=== PATIENT | female | born 1960 | race Caucasian/White ===

== ENCOUNTER 2017-07-22 09:44 | Emergency (ER) | payer OTHER ==
[2017-07-22 09:51] VITALS: BP 110/73
--- NOTE | 2017-07-22 10:01 | UC ---
Throat Pain/Nasal Frankie HPI - HPI Summary HPI Summary: nasal congestion / sore throat x 2 days + cough , chest congestion no fever, no chills - History of Current Complaint Chief Complaint: UCRespiratory Stated Complaint: STOMACH HEAD SORE THROAT Time Seen by Provider: 07/22/17 09:53 Hx Obtained From: Patient Hx Last Menstrual Period: n/a ?: No Onset/Duration: Gradual Onset, Lasting Days - 2, Still Present Severity: Moderate Cough: Nonproductive Associated Signs & Symptoms: Positive: Nasal Discharge. Negative: Dysphagia, FB Sensation, Drooling, Wheezing, Hoarseness, Sinus Discomfort, Fever, Vomiting , Rash - Allergies/Home Medications Allergies/Adverse Reactions: Allergies Allergy/AdvReac Type Severity Reaction Status Date / Time Penicillins Allergy Intermediate Hives Verified 07/22/17 09:51 Raspberry Allergy Intermediate Hives Verified 07/22/17 09:51 Home Medications: Home Medications NK [No Home Medications Reported] 07/22/17 [History Confirmed 07/22/17] PMH/Surg Hx/FS Hx/Imm Hx Previously Healthy: Yes - Surgical History Surgical History: Yes Surgery Procedure, Year, and Place: C-SECTIONS, TWICE - Family History Known Family History: Positive: Hypertension - Social History Alcohol Use: None Substance Use Type: None Smoking Status (MU): Former Smoker Have You Smoked in the Last Year: No When Did the Patient Quit Smoking/Using Tobacco: 15 YRS AGO - Immunization History Most Recent Influenza Vaccination: not 2017 Review of Systems Constitutional: Negative Skin: Negative Eyes: Negative ENT: Sore Throat, Ear Ache, Nasal Discharge Respiratory: Cough Cardiovascular: Negative Gastrointestinal: Negative Genitourinary: Negative Is Patient Immunocompromised?: No All Other Systems Reviewed And Are Negative: Yes Physical Exam Triage Information Reviewed: Yes Appearance: Well-Appearing, No Pain Distress, Well-Nourished Vital Signs: Initial Vital Signs Temp 98.8 F 07/22/17 09:47 Pulse 63 07/22/17 09:47 Resp 18 07/22/17 09:47 BP 110/73 07/22/17 09:47 Pulse Ox 98 07/22/17 09:47 Vital Signs Reviewed: Yes Eyes: Positive: Conjunctiva Clear ENT: Positive: Normal ENT inspection, Hearing grossly normal, Pharyngeal erythema, Nasal congestion, TMs normal Neck exam: Normal Neck: Positive: Supple, Nontender, No Lymphadenopathy Respiratory: Positive: Chest non-tender, Lungs clear, Normal breath sounds Cardiovascular: Positive: RRR, No Murmur, Pulses Normal Throat Pain/Nasal Course/Dx - Differential Dx/Diagnosis Provider Diagnoses: URI Discharge - Discharge Plan Condition: Stable Disposition: HOME Patient Education Materials: Upper Respiratory Infection (ED) Forms: *Work Release Referrals: ROBYN Katz [Primary Care Provider] - If Needed
== END 2017-07-22 10:06 | disposition home or self-care (01) ==
LOC: UCCORT 09:44
DX: J06.9 Acute upper respiratory infection, unspecified (principal); Z88.0 Allergy status to penicillin
CPT/HCPCS: 87651; 99211; G0463

== ENCOUNTER 2018-11-29 10:57 | Emergency (ER) | payer OTHER ==
[2018-11-29 11:44] VITALS: BP 119/92
[2018-11-29 12:20] LABS: Influenza A Molecular POSITIVE (Negative)
--- NOTE | 2018-11-29 13:21 | UC ---
FLU HPI - HPI Summary HPI Summary: 58-year-old woman here with a chief complaint of 2 days of fevers chills and body aches. Her grandson was diagnosed the flu 2 days ago. Patient state some acetaminophen with minimal relief. No vomiting no chest congestion. Feels tired has been sleeping a lot. - History of Current Complaint Chief Complaint: UCRespiratory Stated Complaint: BODYACHES Time Seen by Provider: 11/29/18 13:12 Hx Last Menstrual Period: 2yrs Pain Intensity: 4 - Allergy/Home Medications Allergies/Adverse Reactions: Allergies Allergy/AdvReac Type Severity Reaction Status Date / Time Penicillins Allergy Intermediate Hives Verified 11/29/18 11:32 raspberry Allergy Hives Verified 11/29/18 11:32 Home Medications: Home Medications Acetaminophen [Tylenol Extra Strength] 1,000 mg PO ONCE PRN 11/29/18 [History Confirmed 11/29/18] PMH/Surg Hx/FS Hx/Imm Hx Previously Healthy: Yes - Surgical History Surgical History: Yes Surgery Procedure, Year, and Place: C-SECTIONS, TWICE - Family History Known Family History: Positive: Hypertension - Social History Alcohol Use: None Substance Use Type: None Smoking Status (MU): Never Smoked Tobacco Have You Smoked in the Last Year: No When Did the Patient Quit Smoking/Using Tobacco: 15 YRS AGO - Immunization History Most Recent Influenza Vaccination: not 2017 Review of Systems All Other Systems Reviewed And Are Negative: Yes Constitutional: Positive: Fever, Chills Skin: Positive: Negative Eyes: Positive: Negative ENT: Positive: Sore Throat, Nasal Discharge, Sinus Congestion Respiratory: Positive: Negative Cardiovascular: Positive: Negative Gastrointestinal: Positive: Negative Motor: Positive: Negative Neurovascular: Positive: Negative Musculoskeletal: Positive: Myalgia Neurological: Positive: Headache Psychological: Positive: Negative Is Patient Immunocompromised?: No Physical Exam Triage Information Reviewed: Yes Appearance: No Pain Distress, Well-Nourished, Ill-Appearing - MILD Vital Signs: Initial Vital Signs Temp 97.9 F 11/29/18 11:38 Pulse 101 11/29/18 11:38 Resp 20 11/29/18 11:38 BP 119/92 11/29/18 11:38 Pulse Ox 95 11/29/18 11:38 Vital Signs Reviewed: Yes Eye Exam: Normal Eyes: Positive: Conjunctiva Clear ENT: Positive: Pharyngeal erythema, Nasal congestion, Nasal drainage, TMs normal Neck exam: Normal Neck: Positive: Supple Respiratory: Positive: Lungs clear, Normal breath sounds, No respiratory distress Cardiovascular: Positive: RRR Musculoskeletal Exam: Normal Musculoskeletal: Positive: Strength Intact, ROM Intact Neurological Exam: Normal Neurological: Positive: Alert, Muscle Tone Normal Psychological Exam: Normal Psychological: Positive: Age Appropriate Behavior Skin Exam: Normal Flu Course/Dx - Differential Dx/Diagnosis Provider Diagnosis: Influenza Discharge - Sign-Out/Discharge Documenting (check all that apply): Patient Departure All imaging exams completed and their final reports reviewed: No Studies - Discharge Plan Condition: Stable Disposition: HOME Prescriptions: Oseltamivir CAP* [Tamiflu CAP*] 75 mg PO BID #10 cap Patient Education Materials: Influenza (ED) Forms: *Work Release Referrals: [facility] [place] [facility] REFERRAL [Outside] Additional Instructions: FOLLOW UP WITH YOUR DOCTOR IF NOT COMPLETELY IMPROVED. GET RECHECKED FOR ANY WORSENING OF YOUR CONDITION OR QUESTIONS OR CONCERNS. - Billing Disposition and Condition Condition: STABLE Disposition: Home
== END 2018-11-29 13:27 | disposition home or self-care (01) ==
LOC: UCCORT 10:57
DX: J11.1 Influenza due to unidentified influenza virus with other respiratory manifestations (principal); Z88.0 Allergy status to penicillin; Z91.018 Allergy to other foods
CPT/HCPCS: 99212; G0463

== ENCOUNTER 2019-02-07 16:28 | Emergency (ER) | payer OTHER ==
[2019-02-07 16:47] VITALS: BP 128/64
[2019-02-07] MEDS ORDERED: Ibuprofen ADULT LIQ* 600 MG/30 ML UDC PO ONE (16:48)
--- NOTE | 2019-02-07 16:58 | UC ---
General HPI - HPI Summary HPI Summary: BEGAN 2 DAYS AGO WITH A SORE THROAT, MOSTLY R SIDED. A SHORT TIME LATER PT DEVELOPED R SIDED NECK PAIN AND STIFFNESS. THROAT AND NECK ARE WORSE WITH ANY MOVEMENT, COUGH OR SWALLOW. SHE IS ABLE TO SWALLOW LIQUIDS AND SALIVA. SHE DENIES COUGH, SOB AND DIFFICULTY WITH SPEECH. - History of Current Complaint Chief Complaint: UCRespiratory Stated Complaint: THROAT/NECK PAIN Time Seen by Provider: 02/07/19 16:42 Hx Obtained From: Patient Hx Last Menstrual Period: 2yrs Timing: Constant Pain Intensity: 6 Associated Signs & Symptoms: Positive: Fever. Negative: Cough, Chest Pain, Headache, SOB - Allergy/Home Medications Allergies/Adverse Reactions: Allergies Allergy/AdvReac Type Severity Reaction Status Date / Time Penicillins Allergy Intermediate Hives Verified 02/07/19 16:38 raspberry Allergy Hives Verified 02/07/19 16:38 Home Medications: Home Medications NK [No Home Medications Reported] 02/07/19 [History Confirmed 02/07/19] PMH/Surg Hx/FS Hx/Imm Hx Previously Healthy: Yes - Surgical History Surgical History: Yes Surgery Procedure, Year, and Place: C-SECTIONS, TWICE - Family History Known Family History: Positive: Hypertension, Non-Contributory - Social History Alcohol Use: None Substance Use Type: None Smoking Status (MU): Never Smoked Tobacco Have You Smoked in the Last Year: No When Did the Patient Quit Smoking/Using Tobacco: 15 YRS AGO - Immunization History Most Recent Influenza Vaccination: not 2017 Review of Systems All Other Systems Reviewed And Are Negative: Yes Constitutional: Positive: Fever ENT: Positive: Sore Throat Musculoskeletal: Positive: Other: - R neck pain Physical Exam Triage Information Reviewed: Yes Appearance: Pain Distress - hold R side of neck Vital Signs: Initial Vital Signs Temp 100.5 F 02/07/19 16:39 Pulse 88 02/07/19 16:39 Resp 20 02/07/19 16:39 BP 128/64 02/07/19 16:39 Pulse Ox 98 02/07/19 16:39 Vital Signs Reviewed: Yes Eyes: Positive: Conjunctiva Clear ENT: Positive: Pharyngeal erythema - and R side of pharynx is swollen, Uvula midline - with mild swelling and erythema.. Negative: Nasal congestion, Nasal drainage, TMs normal, Trismus, Muffled voice, Hoarse voice Neck: Positive: Other: - R sided peritonsilar node tenderness. R sternocleidomastoid mm spasm. Pt refusing to turn head due to the pain along the R side of her neck. No stridor. Respiratory: Positive: Lungs clear, Normal breath sounds, No respiratory distress Cardiovascular: Positive: RRR, No Murmur Abdomen Description: Positive: Nontender Musculoskeletal: Positive: ROM Intact Neurological: Positive: Alert Psychological: Positive: Age Appropriate Behavior Skin Exam: Normal Skin: Negative: Rashes Course/Dx - Course Course Of Treatment: ER transfer advised and EMS offered. Pt agrees to transfer but is refusing EMS citing she will drive herself. She is A&Ox3 and able to make decisions thus I must respect EMS refusal. [facility] ER called, report given to Vidhi Clements [employer]. I advised pt c/ w a retropharyngeal abscess until proven otherwise. I also advise pt must not sit in the WR unattended given her diagnosis. - Diagnoses Provider Diagnosis: Retropharyngeal abscess Discharge - Sign-Out/Discharge Documenting (check all that apply): Patient Departure All imaging exams completed and their final reports reviewed: No Studies - Discharge Plan Condition: Stable Disposition: TRANS HIGHER LVL OF CARE FAC Referrals: No Primary Care Phys,NOPCP [Primary Care Provider] - Additional Instructions: LEAVE HERE AND GO DIRECTLY TO THE [facility] EMERGENCY ROOM - Billing Disposition and Condition Condition: STABLE Disposition: Trans Higher Lvl of Care Fac
== END 2019-02-07 17:07 | disposition short-term general hospital (02) ==
LOC: UCCORT 16:28
DX: J39.0 Retropharyngeal and parapharyngeal abscess (principal); M54.2 Cervicalgia; Z88.0 Allergy status to penicillin; Z91.018 Allergy to other foods
CPT/HCPCS: 99212; A9270-GY; G0463